=== PATIENT | female | born 1970 | race Hispanic/Latino ===

== ENCOUNTER 2021-09-21 22:43 | Emergency (ER) | payer MEDICAID ==
[2021-09-21 23:33] LABS: Bacteria/HPF None Seen HPF (None Seen); Bilirubin Negative (Negative); Blood, Urine Negative (Negative); Clarity Turbid (Clear); Glucose, Urine (Dipstick) Greater than 1000 mg/dL (Negative); Ketone, Urine Negative (Negative); Leukocyte Negative Leu/uL (Negative); Nitrite Negative (Negative); Protein, Urine (Dipstick) 200 mg/dL (Neg-Trace); RBC/HPF 0-3 HPF (0-3); Specific Gravity, Urine 1.023 (1.002-1.036); Urobilinogen Normal mg/dL (Less than 2)
[2021-09-22 00:30] LABS: Anion Gap 14 mmol/L (10-20); BUN (Urea Nitrogen) 24 mg/dL (7.0-18.7); Calc. Creatinine Clearance 0 mL/min (70-130); Calcium 8.4 mg/dL (7.8-10.44); Carbon Dioxide 20 mmol/L (22-29); Chloride 104 mmol/L (98-107); Estimated GFR 27; Glucose 394 mg/dL (70-105); Potassium 4.8 mmol/L (3.5-5.1); Sodium 133 mmol/L (136-145)
[2021-09-22] MEDS ORDERED: Acetaminophen 500 MG TAB ONE (00:39)
== END 2021-09-22 00:43 | disposition home or self-care (01) ==
LOC: ERS 22:43
DX: E11.65 Type 2 diabetes mellitus with hyperglycemia (principal); R35.0 Frequency of micturition; I10 Essential (primary) hypertension; Z79.899 Other long term (current) drug therapy; Z79.84 Long term (current) use of oral hypoglycemic drugs
CPT/HCPCS: 36416; 80048; 81003; 81015; 96360

== ENCOUNTER 2022-01-17 19:07 | Inpatient (IN) | payer OTHER, SELFPAY ==
[2022-01-17 20:23] LABS: #Basophils 0.1 thou/uL (0.0-0.2); #Eosinphils 0.3 thou/uL (0.0-0.7); #Lymphocytes 2.9 thou/uL (1.20-3.40); #Monocytes 0.5 thou/uL (0.11-0.59); #Neutrophils 7.1 thou/uL (1.40-6.50); %Basophils 0.6 % (0.0-1.0); %Lymphocytes 26.5 % (21.0-51.0); %Monocytes 4.7 % (0.0-10.0); %Neutrophils 65.1 % (42.0-75.0); Hemoglobin 9.1 g/dL (12.0-16.0); Mean Corpuscular HGB CONC 31.3 g/dL (32.0-36.0); Mean Corpuscular Hemoglobin 21.3 pg (27.0-31.0); Mean Corpuscular Volume 68.2 fl (78.0-98.0); Platelet Count 277 thou/uL (130-400); RBC Distribution Width 15.7 % (11.5-14.5); Red Blood Cell (RBC) Count 4.26 mill/uL (4.20-5.40); White Blood Cell (WBC) Count 10.8 thou/uL (4.8-10.8)
[2022-01-17 20:42] LABS: ALT (SGPT) 18 U/L (8-55); AST (SGOT) 17 U/L (5-34); Albumin 2.5 g/dL (3.5-5.0); Alkaline Phosphatase 137 U/L (40-110); Anion Gap 12 mmol/L (10-20); BUN (Urea Nitrogen) 21 mg/dL (7.0-18.7); Bilirubin, Total 0.2 mg/dL (0.2-1.2); Calc. Creatinine Clearance 0 mL/min (70-130); Calcium 7.7 mg/dL (7.8-10.44); Carbon Dioxide 22 mmol/L (22-29); Chloride 99 mmol/L (98-107); Estimated GFR 26; Globulin 2.7 g/dL (2.4-3.5); Large Platelets SLIGHT; Lipase 77 U/L (8-78); MDiff Complete? YES; Potassium 4.2 mmol/L (3.5-5.1); Protein, Total 5.2 g/dL (6.0-8.3); RBC Morphology Normal; Sodium 129 mmol/L (136-145)
[2022-01-17 20:47] LABS: Glucose 668 mg/dL (70-105)
[2022-01-17] MEDS ORDERED: Metoclopramide HCl 10 MG/2 ML VIAL ONE (21:08)
[2022-01-17] MEDS ORDERED: Famotidine/PF 20 mg/2ml Vial ONE (21:08)
[2022-01-17 21:11] LABS: Bacteria/HPF None Seen HPF (None Seen); Bilirubin Negative (Negative); Blood, Urine 3+ (Negative); Clarity Clear (Clear); Glucose, Urine (Dipstick) Greater than 1000 mg/dL (Negative); Ketone, Urine Negative (Negative); Leukocyte Negative Leu/uL (Negative); Nitrite Negative (Negative); Protein, Urine (Dipstick) 300 mg/dL (Neg-Trace); Specific Gravity, Urine 1.029 (1.002-1.036); Urobilinogen Normal mg/dL (Less than 2); WBC/HPF 0-3 HPF (0-3); pH, Urine 6.5 (5.0-9.0)
[2022-01-17] MEDS ORDERED: Ondansetron PF 4 MG/2 ML Vial IVP PRN (22:42)
[2022-01-17] MEDS ORDERED: Nitroglycerin 0.4 MG TAB (25 Tab Bottle) SL PRN (22:42)
[2022-01-17] MEDS ORDERED: Zolpidem Tartrate 5 MG TAB PO PRN (22:42)
[2022-01-17] MEDS ORDERED: Dextrose 50% Abboject 50 ML SYRINGE SLOW IVP PRN (22:42)
[2022-01-17] MEDS ORDERED: HumaLOG 300 UNITS/3 ML VIAL SC PRN (22:42)
[2022-01-17] MEDS ORDERED: Dextrose 5% in Water 1,000 ML IV PRN (22:42)
[2022-01-17] MEDS ORDERED: Bisacodyl 5 MG TAB PO PRN (22:42)
[2022-01-17] MEDS ORDERED: Insulin Glargine 30 UNITS/0.3 ML VIAL SC SCH (22:44)
[2022-01-17] MEDS ORDERED: Fluconazole 100 MG TAB PO SCH (23:00)
[2022-01-17] MEDS ORDERED: Metoprolol Tartrate 25 MG TAB PO SCH (23:15)
[2022-01-17 23:29] LABS: Hemoglobin A1c Greater than 14.0 % (4.0-6.0)
[2022-01-17 23:42] LABS: Iron 17 ug/dL (50-170); Iron Binding Capacity, Total 230 mcg/dL (265-497); Uric Acid 4.7 mg/dL (2.6-6.0)
[2022-01-18 00:01] LABS: Ferritin 6.92 ng/mL (10-291); Thyroid Stimulating Hormone 2.2436 uIU/mL (0.35-4.94)
[2022-01-18] MEDS ORDERED: Insulin Glargine 30 UNITS/0.3 ML VIAL SC SCH ×2 (00:15→23:45)
[2022-01-18] MEDS: Sodium Chloride 0.9% 1,000 ML IV SCH ×2 (00:30→10:09)
[2022-01-18 01:44] LABS: Potassium, Urine 15.8 mmol/L; Sodium, Urine Less than 20 mmol/L (Not Available)
[2022-01-18 01:51] LABS: SARS-CoV-2 NAA Rapid Test Not Detected (NotDetected)
[2022-01-18] MEDS ORDERED: Iron, Sodium Ferric Gluconate 250 MG in Sodium Chloride 0.9% 250 ML 250 ML IVPB SCH (02:00)
[2022-01-18 02:06] LABS: #Basophils 0.1 thou/uL (0.0-0.2); #Eosinphils 0.4 thou/uL (0.0-0.7); #Lymphocytes 2.7 thou/uL (1.20-3.40); #Monocytes 0.6 thou/uL (0.11-0.59); #Neutrophils 6.8 thou/uL (1.40-6.50); %Basophils 0.8 % (0.0-1.0); %Eosinophils 3.6 % (0.0-10.0); %Lymphocytes 25.6 % (21.0-51.0); %Monocytes 5.4 % (0.0-10.0); %Neutrophils 64.5 % (42.0-75.0); Hemoglobin 8.4 g/dL (12.0-16.0); Mean Corpuscular HGB CONC 31.7 g/dL (32.0-36.0); Mean Corpuscular Hemoglobin 21.9 pg (27.0-31.0); Mean Corpuscular Volume 69.1 fl (78.0-98.0); Mean Platelet Volume 11.3 fL (7.4-10.4); Platelet Count 237 thou/uL (130-400); RBC Distribution Width 15.1 % (11.5-14.5); Red Blood Cell (RBC) Count 3.84 mill/uL (4.20-5.40); White Blood Cell (WBC) Count 10.5 thou/uL (4.8-10.8)
[2022-01-18 02:32] LABS: ALT (SGPT) 13 U/L (8-55); AST (SGOT) 14 U/L (5-34); Albumin 2.2 g/dL (3.5-5.0); Alkaline Phosphatase 116 U/L (40-110); Anion Gap 8 mmol/L (10-20); BUN (Urea Nitrogen) 19 mg/dL (7.0-18.7); Bilirubin, Total Less than 0.2 mg/dL (0.2-1.2); Calc. Creatinine Clearance 0 mL/min (70-130); Calcium 7.5 mg/dL (7.8-10.44); Carbon Dioxide 19 mmol/L (22-29); Cardiac Risk 2.9 (Less than 4.5); Chloride 107 mmol/L (98-107); Cholesterol 136 mg/dl (< 200 Desired); Estimated GFR 34; Globulin 2.8 g/dL (2.4-3.5); Glucose 528 mg/dL (70-105); HDL Cholesterol 47 mg/dL (>60 Neg Risk); LDL Cholesterol, Calculated 60 mg/dL; Magnesium 1.8 mg/dL (1.6-2.6); Potassium 3.4 mmol/L (3.5-5.1); Sodium 131 mmol/L (136-145); Triglycerides 147 mg/dL (Less than 150)
[2022-01-18] MEDS: Iron, Sodium Ferric Gluconate 250 MG in Sodium Chloride 0.9% 250 ML 250 ML IVPB SCH (03:52)
[2022-01-18] MEDS: HYDROcodone/Acetaminophen 5/325 mg Tablet PO PRN ×3 (03:58→21:34)
[2022-01-18 04:37] VITALS: BMI 35.4
[2022-01-18 05:21] LABS: Troponin I Less than 0.010 ng/mL (< 0.028)
[2022-01-18] MEDS: hydrALAZINE 20 MG/ML VIAL SLOW IVP PRN ×2 (06:41→16:47)
[2022-01-18] MEDS: HumaLOG 300 UNITS/3 ML VIAL SC PRN ×3 (07:25→16:45)
[2022-01-18] MEDS: glipiZIDE 10 MG TAB PO SCH (08:10)
[2022-01-18] MEDS: Famotidine 20 MG TAB PO SCH (08:11)
[2022-01-18] MEDS: Aspirin Chewable 81 MG TAB PO SCH (08:11)
[2022-01-18] MEDS: Enoxaparin Sodium 30 MG/0.3 ML SYRINGE SC SCH (08:11)
[2022-01-18] MEDS: Clopidogrel Bisulfate 75 MG TAB PO SCH (08:11)
[2022-01-18] MEDS: Pregabalin 25 MG CAP PO SCH ×2 (08:12→21:35)
[2022-01-18] MEDS: Metoprolol Tartrate 25 MG TAB PO SCH ×2 (08:12→21:35)
[2022-01-18] MEDS ORDERED: Amlodipine 5 MG TAB PO SCH ×2 (09:00→10:15)
[2022-01-18] MEDS ORDERED: FLU VACC QS2022-23(6MOS UP)/PF 60 MCG/0.5 ML SYRINGE IM ONE (09:00)
[2022-01-18 09:56] LABS: HBSAg Index 0.81 S/CO (0-0.99); Hep B Surf Ag Non-Reactive S/CO (NonReactive); Hep C IgG Ab Non-Reactive (NonReactive); Hep C Index 0.38 S/CO (0-0.79)
[2022-01-18] MEDS: Lactated Ringer's 1,000 ML IV SCH ×2 (10:50→21:36)
[2022-01-18] MEDS: Nystatin/Triamcinolone Cream 15 GM TUBE TOP SCH ×2 (11:32→21:36)
[2022-01-18] MEDS: Insulin Glargine 30 UNITS/0.3 ML VIAL SC SCH (21:34)
[2022-01-19] MEDS: Iron, Sodium Ferric Gluconate 250 MG in Sodium Chloride 0.9% 250 ML 250 ML IVPB SCH (04:06)
[2022-01-19] MEDS: Lactated Ringer's 1,000 ML IV SCH ×3 (06:08→21:12)
[2022-01-19] MEDS: glipiZIDE 10 MG TAB PO SCH (08:14)
[2022-01-19] MEDS: Enoxaparin Sodium 30 MG/0.3 ML SYRINGE SC SCH (08:15)
[2022-01-19] MEDS: Amlodipine 10 MG TAB PO SCH (08:15)
[2022-01-19] MEDS: Clopidogrel Bisulfate 75 MG TAB PO SCH (08:15)
[2022-01-19] MEDS: Metoprolol Tartrate 25 MG TAB PO SCH ×2 (08:15→21:01)
[2022-01-19] MEDS: Famotidine 20 MG TAB PO SCH (08:15)
[2022-01-19] MEDS: Aspirin Chewable 81 MG TAB PO SCH (08:15)
[2022-01-19] MEDS: Acetaminophen 325 MG TAB PO PRN (08:16)
[2022-01-19] MEDS: Pregabalin 25 MG CAP PO SCH ×2 (08:16→21:01)
[2022-01-19] MEDS: Nystatin/Triamcinolone Cream 15 GM TUBE TOP SCH ×2 (08:17→21:01)
[2022-01-19] MEDS ORDERED: Senokot 8.6 MG TAB PO PRN (10:35)
[2022-01-19] MEDS ORDERED: Ergocalciferol 1.25 MG(50,000 UNITS) CAP PO SCH (10:45)
[2022-01-19 11:04] LABS: Hemoglobin 8.7 g/dL (12.0-16.0); Mean Corpuscular HGB CONC 31.1 g/dL (32.0-36.0); Mean Corpuscular Hemoglobin 21.7 pg (27.0-31.0); Mean Corpuscular Volume 69.6 fl (78.0-98.0); Mean Platelet Volume 11.5 fL (7.4-10.4); Platelet Count 268 thou/uL (130-400); RBC Distribution Width 15.8 % (11.5-14.5); Red Blood Cell (RBC) Count 4.04 mill/uL (4.20-5.40)
[2022-01-19] MEDS: HumaLOG 300 UNITS/3 ML VIAL SC PRN (11:13)
[2022-01-19 11:19] LABS: ANA Symphony (Qualitative) Negative (Negative); ANA Symphony (Quantitative) 0.5 Ratio (< 0.7 Negative); dsDNA IgG Antibody 5.1 IU/mL (<10 Negative)
[2022-01-19 11:39] LABS: #Eosinphils 0.4 thou/uL (0.0-0.7); #Lymphocytes 1.8 thou/uL (1.20-3.40); #Monocytes 0.5 thou/uL (0.11-0.59); #Neutrophils 7.2 thou/uL (1.40-6.50); %Basophils 0.5 % (0.0-1.0); %Lymphocytes 18.5 % (21.0-51.0); %Monocytes 4.7 % (0.0-10.0); %Neutrophils 72.3 % (42.0-75.0); Anisocytosis SLIGHT = 6-15 cells (100X) (0-5/hpf); Elliptocytes SLIGHT = 2-5 cells (100X) (0-1/hpf); Hypochromia SLIGHT = 6-15 cells (100X) (0-5/hpf); MDiff Complete? YES; Microcytosis SLIGHT = 6-15 cells (100X) (0-5/hpf); Platelet Morphology Comment Appears Adequate; Polychromasia SLIGHT = 2-3 cells (100X) (0-2/hpf)
[2022-01-19 11:50] LABS: Albumin 2.2 g/dL (3.5-5.0); Anion Gap 10 mmol/L (10-20); BUN (Urea Nitrogen) 20 mg/dL (7.0-18.7); BUN/Creatinine Ratio 9.62; Calc. Creatinine Clearance 46 mL/min (70-130); Calcium 7.8 mg/dL (7.8-10.44); Carbon Dioxide 18 mmol/L (22-29); Chloride 110 mmol/L (98-107); Estimated GFR 29; Glucose 227 mg/dL (70-105); Phosphorus 3.1 mg/dL (2.3-4.7); Potassium 3.7 mmol/L (3.5-5.1); Sodium 134 mmol/L (136-145)
[2022-01-19] MEDS: Albumin 25% 25 GM/100 ML BOT IVPB SCH ×2 (12:12→21:14)
[2022-01-19] MEDS: Sodium Bicarbonate Tab 325 MG TAB PO SCH ×2 (15:39→21:01)
[2022-01-19 18:09] LABS: Creatinine, Urine 153.69 mg/dL (47-110)
[2022-01-19] MEDS: Insulin Glargine 30 UNITS/0.3 ML VIAL SC SCH (21:02)
[2022-01-20] MEDS: Iron, Sodium Ferric Gluconate 250 MG in Sodium Chloride 0.9% 250 ML 250 ML IVPB SCH (02:45)
[2022-01-20 05:11] LABS: Anion Gap 10 mmol/L (10-20); BUN (Urea Nitrogen) 20 mg/dL (7.0-18.7); Calc. Creatinine Clearance 44 mL/min (70-130); Carbon Dioxide 20 mmol/L (22-29); Chloride 110 mmol/L (98-107); Estimated GFR 27; Glucose 209 mg/dL (70-105); Potassium 3.5 mmol/L (3.5-5.1); Sodium 136 mmol/L (136-145)
[2022-01-20] MEDS: Lactated Ringer's 1,000 ML IV SCH (05:34)
[2022-01-20] MEDS ORDERED: Sodium Bicarbonate 150 MEQ in Dextrose 5% in Water 1,000 ML IV SCH (07:00)
[2022-01-20 07:29] LABS: Magnesium 1.9 mg/dL (1.6-2.6)
[2022-01-20] MEDS: glipiZIDE 10 MG TAB PO SCH (08:38)
[2022-01-20] MEDS: Sodium Bicarbonate 150 MEQ in Sterile Water Injection 1,000 ML IV SCH ×3 (08:38→17:06)
[2022-01-20] MEDS: Amlodipine 10 MG TAB PO SCH (08:38)
[2022-01-20] MEDS: Potassium Bicarbonate/Cit Ac 20 MEQ TAB PO SCH ×2 (08:38→17:05)
[2022-01-20] MEDS: Famotidine 20 MG TAB PO SCH (08:39)
[2022-01-20] MEDS: Enoxaparin Sodium 30 MG/0.3 ML SYRINGE SC SCH (08:39)
[2022-01-20] MEDS: hydrALAZINE 25 MG TAB PO SCH ×3 (08:39→21:18)
[2022-01-20] MEDS: Empagliflozin 25 MG TAB PO SCH (08:39)
[2022-01-20] MEDS: Clopidogrel Bisulfate 75 MG TAB PO SCH (08:39)
[2022-01-20] MEDS: Aspirin Chewable 81 MG TAB PO SCH (08:39)
[2022-01-20] MEDS: Pregabalin 25 MG CAP PO SCH ×2 (08:40→21:19)
[2022-01-20] MEDS: Sodium Bicarbonate Tab 325 MG TAB PO SCH ×3 (08:40→21:19)
[2022-01-20] MEDS: Polyethylene Glycol 3350 17 GM Packet PO SCH (08:40)
[2022-01-20] MEDS: Metoprolol Tartrate 25 MG TAB PO SCH (08:40)
[2022-01-20] MEDS: Nystatin/Triamcinolone Cream 15 GM TUBE TOP SCH ×2 (09:04→21:19)
[2022-01-20] MEDS: HumaLOG 300 UNITS/3 ML VIAL SC PRN (11:57)
[2022-01-20 12:53] LABS: Creatinine, Urine 37.39 mg/dL (47-110)
[2022-01-20 13:40] LABS: A/G Ratio 0.7 (0.7-1.7); Alpha 1 0.2 g/dL (0.0-0.4); Alpha 2 0.8 g/dL (0.4-1.0); Beta 0.8 g/dL (0.7-1.3); Gamma 0.9 g/dL (0.4-1.8); Globulin, Total 2.8 g/dL (2.2-3.9); M-Spike Not Observed g/dL (Not Observed); Protein Electrophoresis Intrp Note: (.)
[2022-01-20] MEDS: Metoprolol Tartrate 50 MG TAB PO SCH (21:18)
[2022-01-20] MEDS: Insulin Glargine 30 UNITS/0.3 ML VIAL SC SCH (21:19)
[2022-01-21] MEDS: Sodium Bicarbonate 150 MEQ in Sterile Water Injection 1,000 ML IV SCH (02:40)
[2022-01-21] MEDS: Iron, Sodium Ferric Gluconate 250 MG in Sodium Chloride 0.9% 250 ML 250 ML IVPB SCH (04:24)
[2022-01-21] MEDS: Acetaminophen 325 MG TAB PO PRN (05:58)
[2022-01-21 07:57] VITALS: TEMP 97.8
[2022-01-21 08:10] LABS: Albumin 2.6 g/dL (3.5-5.0); Anion Gap 10 mmol/L (10-20); BUN (Urea Nitrogen) 21 mg/dL (7.0-18.7); BUN/Creatinine Ratio 10.94; Calc. Creatinine Clearance 50 mL/min (70-130); Calcium 7.9 mg/dL (7.8-10.44); Carbon Dioxide 28 mmol/L (22-29); Chloride 104 mmol/L (98-107); Estimated GFR 31; Glucose 217 mg/dL (70-105); Phosphorus 2.8 mg/dL (2.3-4.7); Potassium 3.6 mmol/L (3.5-5.1); Sodium 138 mmol/L (136-145)
[2022-01-21] MEDS: glipiZIDE 10 MG TAB PO SCH (08:37)
[2022-01-21] MEDS: Potassium Bicarbonate/Cit Ac 20 MEQ TAB PO SCH (08:37)
[2022-01-21] MEDS: Clopidogrel Bisulfate 75 MG TAB PO SCH (08:37)
[2022-01-21] MEDS: Aspirin Chewable 81 MG TAB PO SCH (08:37)
[2022-01-21] MEDS: Pregabalin 25 MG CAP PO SCH (08:38)
[2022-01-21] MEDS: Polyethylene Glycol 3350 17 GM Packet PO SCH (08:38)
[2022-01-21] MEDS: Enoxaparin Sodium 30 MG/0.3 ML SYRINGE SC SCH (08:38)
[2022-01-21] MEDS: Metoprolol Tartrate 50 MG TAB PO SCH (08:38)
[2022-01-21] MEDS: Empagliflozin 25 MG TAB PO SCH (08:38)
[2022-01-21] MEDS: Famotidine 20 MG TAB PO SCH (08:38)
[2022-01-21] MEDS ORDERED: Sodium Bicarbonate Tab 325 MG TAB PO SCH (09:00)
[2022-01-21] MEDS ORDERED: NIFEdipine XL 90 MG TAB PO SCH (09:00)
[2022-01-21 09:04] VITALS: BP 164/79
[2022-01-21] MEDS ORDERED: Epoetin (ESRD) 10,000 UNITS/ML VIAL SC SCH (10:00)
[2022-01-21] MEDS: Nystatin/Triamcinolone Cream 15 GM TUBE TOP SCH (10:45)
[2022-01-21 13:39] LABS: Cytoplasmic (C-ANCA) <1:20 titer (Neg:<1:20); Myeloperoxidase AutoAbs <0.2 units (0.0-0.9); Perinuclear (P-ANCA) <1:20 titer (Neg:<1:20); Proteinase-3 AutoAbs Less than 0.2 units (0.0-0.9)
[2022-01-21 16:10] LABS: Albumin-Ur 45.7 % (.); Alpha 1 - Ur 9.2 % (.); Alpha 2 - Ur 8.2 % (.); Beta-Ur 16.6 % (.); Gamma-Ur 20.3 % (.); M-Spike,% Not Observed % (Not Observed); Protein, Urine 1349.4 mg/dL (Not Estab.)
[2022-01-26] MEDS ORDERED: Ergocalciferol 1.25 MG(50,000 UNITS) CAP PO SCH (09:00)
== END 2022-01-21 12:32 | disposition home or self-care (01) | DRG 683 ==
LOC: ERS 19:07 → 2SW 22:49 → OBSVTOIN 01-18 15:26
PROVIDERS: ADMIT Internal Medicine; ATTEND Internal Medicine
DX: N17.9 Acute kidney failure, unspecified (principal); E87.1 Hypo-osmolality and hyponatremia; E87.20 Acidosis, unspecified; K21.9 Gastro-esophageal reflux disease without esophagitis; E11.319 Type 2 diabetes mellitus with unspecified diabetic retinopathy without macular edema; H54.8 Legal blindness, as defined in USA; E66.9 Obesity, unspecified; E11.65 Type 2 diabetes mellitus with hyperglycemia; N76.0 Acute vaginitis; E11.42 Type 2 diabetes mellitus with diabetic polyneuropathy; E11.22 Type 2 diabetes mellitus with diabetic chronic kidney disease; I12.9 Hypertensive chronic kidney disease with stage 1 through stage 4 chronic kidney disease, or unspecified chronic kidney disease; N18.9 Chronic kidney disease, unspecified; E87.6 Hypokalemia; E83.51 Hypocalcemia; D63.1 Anemia in chronic kidney disease; D50.9 Iron deficiency anemia, unspecified; Z90.49 Acquired absence of other specified parts of digestive tract; Z91.14 Patient's other noncompliance with medication regimen; Z68.35 Body mass index [BMI] 35.0-35.9, adult; Z79.82 Long term (current) use of aspirin; Z79.4 Long term (current) use of insulin; Z79.84 Long term (current) use of oral hypoglycemic drugs; Z79.899 Other long term (current) drug therapy
CPT/HCPCS: 36415; 36416; 71045; 74176; 76770; 80048; 80053; 80061; 80069; 81003; 81015; 82010; 82306; 82570; 82728; 83036; 83516; 83540; 83550; 83690; 83735; 84133; 84155; 84156; 84165; 84166; 84300; 84443; 84484; 84550; 85025; 86037; 86038; 86225; 86803; 87340; 93005; 94760; 96372; 96375; A4217; G0378; J0360; J1650; J1815; J2405; J2765; J2916; J7050; J7120; P9047; Q4081; S0028